=== PATIENT | female | born 1985 | race American Indian/Alaskan Native ===

== ENCOUNTER 2025-11-10 17:33 | Emergency (ER) | payer SELFPAY ==
[2025-11-10 18:04] LABS: BASOPHILS PERCENT AUTO 0.6 % (0.0-1.0); EOSINOPHILS PERCENT AUTO 2.1 % (1.0-3.0); LYMPHOCYTES PERCENT AUTO 30.6 % (20.5-50.1); MONOCYTES PERCENT AUTO 7.0 % (2-8); NEUTROPHILS PERCENT AUTO 59.7 % (42.2-75.2); PLATELET COUNT,PLT 314 10^3/uL (150-450); RED BLOOD CELL COUNT 4.35 10^6/uL (4.2-5.4); WHITE BLOOD CELL COUNT,WBC 6.7 10^3/uL (5.0-10.0)
[2025-11-10] MEDS: Iopamidol 612 MG/ML 100 ML Bottle IVPUSH ONE ×3 (18:07→18:12)
[2025-11-10 18:33] LABS: A/G RATIO 0.8; ALANINE AMINOTRANSFERASE,ALT 20 U/L (14-59); ASPARTATE AMNIOTRANSFERASE,AST 17 U/L (15-37); BILIRUBIN TOTAL 0.3 mg/dL (0.2-1.0); BLOOD UREA NITROGEN,BUN 10 mg/dL (7-18); CARBON DIOXIDE,CO2 28 mmol/L (21-32); CHLORIDE,CL 104 mmol/L (98-107); CREATININE 0.93 mg/dL (0.55-1.02); EST CRCL DRUG DOSING (CG) 76.63 mL/min; GLUCOSE RANDOM 99 mg/dL (70-99); POTASSIUM,K 4.0 mmol/L (3.5-5.1); PROTEIN TOTAL,TP 8.3 g/dL (6.4-8.2); SODIUM,NA 140 mmol/L (136-145); T4 FREE 0.97 ng/dL (0.76-1.46); TSH ULTRASENSITIVE 2.87 uIU/mL (0.36-3.74)
[2025-11-10 18:34] LABS: ESTIMATED GFR 79 mL/min (>=60)
[2025-11-10 18:50] LABS: APPEARANCE,URINE CLEAR (CLEAR); GLUCOSE,URINE NEGATIVE (NEGATIVE); OCCULT BLOOD,URINE MODERATE (NEGATIVE)
[2025-11-10] MEDS: Ketorolac 30 MG/ML SDV IVPUSH ONE (18:50)
[2025-11-10 19:12] LABS: EPITHELIAL CELLS,URINE FEW /HPF (NOT SEEN)
== END 2025-11-10 19:48 | disposition home or self-care (01) ==
LOC: DL.ED 17:33
DX: R07.89 Other chest pain (principal); R51.9 Headache, unspecified; R10.13 Epigastric pain; R10.24 Suprapubic pain; D25.9 Leiomyoma of uterus, unspecified; E86.0 Dehydration; F17.200 Nicotine dependence, unspecified, uncomplicated
CPT/HCPCS: 36415; 71045; 74177; 80053; 81001; 81025; 83690; 83735; 84439; 84443; 84484; 85025; 93005; 96361; 96374; 99285; J1885; J7030; Q9967